=== PATIENT | female | born 1985 | race Caucasian/White ===

== ENCOUNTER 2021-10-27 10:49 | Outpatient (CLI) | payer OTHER, SELFPAY ==
--- NOTE | 2021-10-27 11:13 | ECG_ITS ---
Measurements Intervals [place] Rate: 90 P: 62 [place]: 144 QRS: 32 QRSD: 76 T: 50 QT: 337 QTc: 414 Interpretive Statements SINUS RHYTHM NO PREVIOUS ECG AVAILABLE FOR COMPARISON Electronically Signed On 10-27-2021 18:22:38 CDT by Lo Queen M.D.
[2021-10-27 16:52] LABS: Alanine Aminotransferase 17 U/L (6-35); Albumin Level 4.2 g/dL (3.5-5.1); Alkaline Phosphatase 55 U/L (38-126); Amylase 80 U/L (30-110); Aspartate Amino Transferase 31 U/L (14-36); Bilirubin,Total 0.3 mg/dL (0.2-1.3); Lipase 80 U/L (23-300)
== END 2021-10-27 10:50 | disposition home or self-care (01) ==
LOC: ANHSURGERY 10:54
PROVIDERS: PCP Family Medicine Sports Medicine; Visit Provider Surgery
DX: Z01.818 Encounter for other preprocedural examination (principal); I10 Essential (primary) hypertension; K80.20 Calculus of gallbladder without cholecystitis without obstruction
CPT/HCPCS: 36415; 80076; 82150; 83690; 86850; 86900; 86901; 93005

== ENCOUNTER 2021-11-01 05:13 | Day surgery (SDC) | payer OTHER, SELFPAY ==
[2021-10-22 13:11] VITALS: BMI 28.0
--- NOTE | 2021-10-22 13:22 | PC.NURSE ---
Report to the Outpatient Waiting Room, entrance under the green pavilion located off [facility], at time 10:00 on date 11/01/21. OR Time: 12:00. - You and your visitor will be asked a series of questions to screen for COVID 19 for your protection. - Only one visitor is allowed at this time. - The patient visitor is requested to leave or wait in car when not with patient. - A mask is required within the hospital. Patients may have clear liquids (water, carbonated beverages, clear teas, apple juice) until 3 hours prior to surgery (9:00) with a maximum of 20 ounces. - No food from midnight until time of surgery Take the following medications with a SIP of water the morning of surgery: NONE Medications to discontinue per physician: VITAMIN Date to take last dose: 10/28/21 Please no make-up, nail mongolian, hairspray, perfume, deodorant, or body powder the day of surgery. No jewelry (including any body piercings) or valuables the day of surgery, leave them at home. Please take a shower or bath the night before, or the morning of, surgery with an antibacterial soap (HIBICLENS). Wear comfortable, loose fitting clothing. - Jewelry must be removed prior to entering the operating room. Rings and piercings that are not removed may be cut off. - The hospital will not accept responsibility for valuables. - Please leave all valuables, including medications, at home the day of surgery. If you are going home after surgery, a licensed ice cream truck driver must drive you home. - NO public transportation without another adult. - We recommend that an adult stay with you for 24 hours following discharge. - We also recommend that you do not drive, make important decision, drink alcoholic beverages, or take any drugs that were not prescribed by your health care provider for at least 24 hours after your discharge time. Follow any additional instructions given to you from your surgeon. If you or anyone in your household have experienced Covid symptoms in the past week, please notify your surgeon or the nurse liaison at the phone number below for possible testing. Telephone instructions given to PT - DORIS BUCHANAN and asked if any additional questions and then verbalized understanding. Patient advised to call surgeon office or pre surgery nurse liaison [phone] if any additional questions.
[2021-11-01] VITALS (9 sets, daily range): BP systolic 111–138; BP diastolic 59–84; PULSE 64–96; RESP 12–18; TEMP 36.6–37.1; O2SAT 98–100
--- NOTE | 2021-11-01 10:30 | P.PNAN_ITS ---
Anes - Initial Pre Proc Eval Procedure: Operation Date: 11/01/21 12:00 Proposed Procedures p Laparoscopic Cholecystectomy, Possible Open - Jordin James DO Date/Time: 11/01/21 10:30 Surgeon: Jordin James DO Pre Op Diagnosis: symptomatic cholelithiasis Patient Data Age: 36 Gender: F Height: 1.68 m Weight: 79 kg Allergies Allergy/AdvReac Type Severity Reaction Status Date / Time No Known Allergies Allergy Verified 10/22/21 13:10 Home Medications Medication Instructions Recorded Confirmed Type famotidine 20 mg tablet 20 mg PO HS 10/04/21 10/22/21 History lisinopril 5 mg tablet 5 mg PO HS 10/04/21 10/22/21 History multivitamin 1 tablet PO DAILY 10/04/21 10/22/21 History Patient hx anesthesia problems: none Family hx anesthesia problems: none Results Review: All pre-operative results and documents have been reviewed as part of the pre- operative evaluation. [facility] Past Medical History Medical History GERD (gastroesophageal reflux disease) Hypertension Kidney stones Surgical History Surgical History Anal fistula History of anal fistulotomy 2015. S/P Family History Family History Unknown Cancer Hypertension Social History Social History Smoking status: Former smoker Tobacco type: cigarettes Additional smoking assessment comments: [employer] Alcohol intake: never Substance use: never Substance use type: does not use Living arrangements: with family Spiritual care concerns: No Anes - Eval Final PreProcedure Day of Procedure 11/01/21 10:30 Patient weight: overweight Heart: regular rate and rhythm Lungs: clear to auscultation Airway: Mallampati scale class II Neurological: alert and oriented Last oral intake: >/= 8 hours ASA classification: II Emergent: no Anesthetic plan: proceed Anesthesia type and monitoring: general ETT and standard monitoring Results Review: All pre-operative results and documents have been reviewed as part of the pre- operative evaluation. Informed Consent: The patient's anesthetic plan and its attendant risks and benefits were discussed with the patient/family/POA. Questions were solicited and answers provided to the satisfaction of the patient/family/POA.
[2021-11-01] MEDS: ACETAMINOPHEN 500 MG TABLET 1000 MG PO (11:02)
[2021-11-01] MEDS: KETOROLAC 15 MG/ML VIAL (*BKC) IV PUSH (11:04)
[2021-11-01] MEDS: LACTATED RINGERS 1,000 ML 30 ML IV CONT ×2 (11:05→13:17)
--- NOTE | 2021-11-01 11:48 | WPDHPUPDATE1 ---
History and Physical Update Update Date/Time: 11/01/21 11:48 History and Physical has been reviewed, including an updated exam of the patient. There are NO changes in the patient's condition. Risks, benefits, and alternatives have been discussed and questions answered. Patient agrees to proceed with procedure.
[2021-11-01] MEDS: ceFAZolin 2 GM/D5W 50 ML 2 GM/50 ML BAG IVPB (11:53)
[2021-11-01] MEDS: BUPIVACAINE/EPINEPHRINE 0.25% 50 ML VIAL 30 ML INFILTRATE (12:30)
--- NOTE | 2021-11-01 12:54 | W.PM.PROC2 ---
Procedure Note - Detailed Date of Procedure 11/01/21 Pre-op Diagnosis symptomatic cholelithiasis Post-op Diagnosis Same Procedure Performed Laparoscopic Cholecystectomy Surgeon Jordin James, DO Anesthesia General and Local (0.5% bupivacaine) Indications This is a 36-year-old woman who presented with intermittent right upper quadrant abdominal pain for the past 2-3 years. She noticed this mostly with eating fried or fatty foods. She had a gallbladder ultrasound 3 years ago which showed evidence of cholelithiasis and she recently underwent HIDA scan which showed a gallbladder ejection fraction of 26%. Discussions were made with the patient about treatment options and decision was made to proceed with laparoscopic cholecystectomy, possible open. Findings Laparoscopic cholecystectomy was performed. The patient's gallbladder was slightly dilated and enlarged and had several pericholecystic adhesions. There were a couple stones within the neck of the gallbladder. The cystic duct appeared normal in size. The gallbladder was removed and sent to the lab for pathology. Patient did have a few omental adhesions just inferior to her umbilicus. These were taken down with scissors with electrocautery. Description of Procedure Procedure as well as risks, benefits, and alternatives were discussed with patient. Written consent was obtained and placed in chart prior to procedure. The patient was brought back to surgical suite. Patient was placed in supine position on operating table. Time-out was done to confirm patient and procedure. Patient was then intubated by the anesthesia department. Abdomen was prepped and draped in sterile fashion using chlorhexidine prep. 0.5% bupivacaine with epinephrine was infiltrated at each site of incision. A 5 millimeter incision was made near the umbilicus, and a 5 millimeter Optiview trocar was advanced through the abdominal layers under direct visualization. Once inside the abdominal cavity, carbon dioxide was insufflated to create a pneumoperitoneum. The camera was inserted and the abdomen was inspected. No immediate abnormalities were identified. The patient was placed in reverse Trendelenburg position and rotated slightly to the left. An 11 millimeter incision was made in the subxiphoid region, and an 11 millimeter trocar was inserted under direct visualization. Two 5 millimeter incisions were made in the right upper quadrant, and two 5 millimeter trocars were inserted under direct visualization. The gallbladder was identified and grasped at the fundus and retracted superiorly. It was then grasped at the infundibulum retracted laterally. Careful dissection around the neck of the gallbladder was performed using blunt dissection with a [place] grasper and hook electrocautery. The cystic duct was identified, and a window was created behind it. The cystic artery was also identified and a window was created behind it. The critical view of safety was identified, visualizing the cystic duct running directly into the neck of the gallbladder, and the cystic artery running directly into the wall of the gallbladder. A 5 millimeter clip horologist was then used to place 2 clips proximally and 1 clip distally on both the cystic duct and cystic artery. They were then both transected using endoscopic scissors. Once safely away from the korin hepatitis, the gallbladder was dissected free from the liver bed using hook electrocautery. Hemostasis was achieved along the way. The gallbladder was removed completely and then removed through the subxiphoid port. The liver bed was then inspected. Hemostasis appeared adequate, and our clips appeared secure. The area was gently irrigated with sterile saline. No other abnormalities were seen. The patient was flattened out in bed, and 1 final inspection was made around the abdominal cavity. The subxiphoid port was removed, and a Domingo Bessy cone was used to approximate the fascia with an
[2021-11-01] MEDS: oxyCODONE HCL (*CRX) 5 MG TAB IR PO (14:16)
[2021-11-01] MEDS: ONDANSETRON INJ 4 MG/2 ML VIAL IV PUSH (14:45)
== END 2021-11-01 15:25 | disposition home or self-care (01) ==
PROVIDERS: PCP Family Medicine Sports Medicine; Visit Provider Surgery
PROC: 0FT44ZZ Resection of Gallbladder, Percutaneous Endoscopic Approach (ICD-10-PCS; CPT 47562; principal; 2021-11-01 12:00)
DX: K80.10 Calculus of gallbladder with chronic cholecystitis without obstruction (principal); K21.9 Gastro-esophageal reflux disease without esophagitis; K82.8 Other specified diseases of gallbladder; I10 Essential (primary) hypertension; Z87.891 Personal history of nicotine dependence; R10.11 Right upper quadrant pain
CPT/HCPCS: 47562; 88304; A9270; J0330; J0690; J1100; J1885; J2250; J2405; J2704; J2710; J3010; J7120